=== PATIENT | male | born 1965 | race Caucasian/White ===

== ENCOUNTER 2016-06-26 21:02 | Emergency (ER) | payer MEDICARE ==
[2014-04-27 15:23] VITALS: BMI 21.4
[~2016-06-26 21:02] MED LIST: ACETAMINOPHEN500 M1 PO; CYMBALTA30 MG PO; DAKIN'S 0.25%480 ML TP; DULCOLAX5 MG PO; FLORANEX / LACT1 TAB PO; KLONOPIN1 MG PO; LEVSIN/ANASP0.125 MG PO; LINZESS145 MCG PO; MIDODRINE HCL5 MG PO; MULTI-DAY VITAM1 TAB PO; NASAL DECONGESTANT PO; NEURONTIN800 MG PO; OXYCONTIN10 MG PO; PHENERGAN25 M1 PO; PROTONIX40 MG PO; ULTRACET TABLET1 TAB PO; ULTRAM50 MG PO; ZANAFLEX4 MG PO; ZANTAC150 MG PO
[2016-06-26 22:08] LABS: BASOPHILS 0.3 % (0.0-2.0); EOSINOPHILS 4.8 % (0-7); HEMATOCRIT 42.8 % (42.0-54.0); HEMOGLOBIN 13.9 g/dL (13.5-17.5); IMMATURE GRANULOCYTES 0.1 % (0-5); LYMPHOCYTES 38.1 % (15-50); MCH 31.9 pg (26.0-34.0); MCHC 32.5 g/dL (31.0-37.0); MCV 98.2 fL (80.0-100.0); MEAN PLATELET VOLUME 10.6 fL (7.4-10.4); MONOCYTES 5.5 % (2-11); NEUTROPHILS 51.2 % (40-80); RBC 4.36 10x6/uL (4.20-6.10); RDW 14.9 % (11.5-14.5); WBC 9.2 10x3/uL (4.8-10.8)
[2016-06-26 22:11] LABS: PLATELET COUNT 194 10x3/uL (130-400)
[2016-06-26 22:20] LABS: ALBUMIN 3.8 g/dL (3.4-5.0); ALKALINE PHOSPHATASE 118 U/L (46-116); ALT (SGPT) 27 U/L (10-68); CALC OSMOLALITY 281 mosm/kg (275-300); CALCIUM 9.5 mg/dL (8.5-10.1); CARBON DIOXIDE 29.9 mmol/L (21.0-32.0); CHLORIDE - SERUM 103 mmol/L (98-107); CREATININE - SERUM 0.9 mg/dL (0.6-1.3); GLUCOSE 92 mg/dL (74-106); POTASSIUM - SERUM 4.2 mmol/L (3.5-5.1); PROTEIN - SERUM 8.8 g/dL (6.4-8.2); SODIUM 141 mmol/L (136-145); UREA NITROGEN 16 mg/dL (7-18); eGFR NON AFRICAN AMERICAN > 90 mL/min (90-120)
== END 2016-06-27 | disposition home or self-care (01) ==
LOC: D.ER 21:02
PROVIDERS: Emergency Medicine
DX: F60.89 Other specific personality disorders (principal); F17.200 Nicotine dependence, unspecified, uncomplicated